=== PATIENT | male | born 1950 | race Hispanic/Latino ===

== ENCOUNTER → 2023-01-19 | Outpatient (CLI) | payer OTHER, MEDICARE ==
[2023-01-19 13:11] LABS: CREATININE 1.4 mg/dL (0.5-1.5); POTASSIUM 4.2 mmol/L (3.5-5.1)
== END | disposition home or self-care (01) ==
LOC: LAB 09:12
PROVIDERS: ATTEND Internal Medicine Cardiovascular Disease
DX: I48.0 Paroxysmal atrial fibrillation (principal); I50.21 Acute systolic (congestive) heart failure; R00.1 Bradycardia, unspecified; D68.59 Other primary thrombophilia
CPT/HCPCS: 36415; 80048; 83880